=== PATIENT | female | born 1950 | race Caucasian/White ===

== ENCOUNTER 2017-03-27 17:29 | Emergency (ER) | payer OTHER, MEDICARE ==
[~2017-03-27] VITALS: Ht 157.5 cm; Wt 70.2 kg
[2017-03-27 17:35] VITALS: BP 142/84; PULSE 87; RESP 16; TEMP 98.8; O2SAT 94
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
[2017-03-27] MEDS ORDERED: LISI10TA3 PO (17:55)
[2017-03-27] MEDS ORDERED: BUSP15TA PO (17:55)
[2017-03-27] MEDS ORDERED: IBUP-232 PO (17:55)
[2017-03-27] MEDS ORDERED: ZOFR4TAB PO (17:55)
[2017-03-27] MEDS ORDERED: RANI1TAB5 PO (17:55)
[2017-03-27] MEDS ORDERED: METF500T PO (17:55)
[2017-03-27] MEDS ORDERED: FLUT50SP EACH NARE (17:55)
[2017-03-27] MEDS ORDERED: ALPR0.5T3 PO (17:55)
[2017-03-27] MEDS ORDERED: DULO1CAP3 PO (17:55)
[2017-03-27] MEDS ORDERED: ASPI-516 CHEW (17:55)
[2017-03-27] MEDS ORDERED: SIMV40TA PO (17:55)
[2017-03-27] MEDS ORDERED: MONT10TA4 PO (17:55)
[2017-03-27] MEDS ORDERED: PAXI30TA7 PO (17:55)
[2017-03-27 18:12] LABS: BLOOD, URINE NEG (NEG); GLUCOSE,URINE NEG (NEG); KETONE, URINE NEG (NEG); NITRITE,URINE NEG (NEG); PH, URINE 5.5 (5.0-8.5)
[2017-03-27 18:15] LABS: URINE COLOR YELLOW (YELLW/STRAW)
[2017-03-27 18:17] LABS: BACTERIA, URINE FEW /hpf; COMMENT (UR) CULT NOT INDICATED; CULTURE IF INDICATED CULT NOT INDICATED; RBC, URINE 0-3 /hpf (0-3); SQUAMOUS EPITHELIAL CELL URINE > 8 /hpf (0-5)
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
[2017-03-27 18:46] LABS: AUTOMATED NEUTROPHIL # 4.8 TH/MM3 (1.8-7.7); BASOPHIL # 0.2 TH/MM3 (0-0.2); BASOPHIL % 2.8 % (0.0-2.0); EOSINOPHIL # 0.4 TH/MM3 (0-0.4); EOSINOPHIL % 4.5 % (0.0-4.0); HEMATOCRIT 35.2 % (35.0-46.0); HEMO FLAGS DIFF FINAL; LYMPH % 30.6 % (9.0-44.0); LYMPHOCYTE # 2.6 TH/MM3 (1.0-4.8); MEAN CELL VOLUME 85.1 FL (80.0-100.0); MEAN CORPUSCULAR HEMOGLOBIN 27.1 PG (27.0-34.0); MEAN CORPUSCULAR HGB CONC 31.8 % (32.0-36.0); MONO % 7.2 % (0.0-8.0); NEUT % 54.9 % (16.0-70.0); PLATELET COUNT 300 TH/MM3 (150-450); RED BLOOD COUNT 4.14 MIL/MM3 (4.00-5.30); WHITE BLOOD COUNT 8.6 TH/MM3 (4.0-11.0)
[2017-03-27 19:09] VITALS: BP 98/68; PULSE 74; RESP 14; O2SAT 100
[2017-03-27] MEDS ORDERED: BACT800T5 PO (19:17)
[2017-03-27 19:24] LABS: BICARBONATE 24.7 MEQ/L (21.0-32.0)
[2017-03-27 19:40] VITALS: BP 100/70
== END 2017-03-27 19:54 | disposition home or self-care (01) ==
LOC: PHED 17:29
DX: M54.6 Pain in thoracic spine (principal); M54.2 Cervicalgia; N39.0 Urinary tract infection, site not specified; V89.2XXA Person injured in unspecified motor-vehicle accident, traffic, initial encounter
CPT/HCPCS: 70450; 72072; 72125; 80048; 80307; 81001; 85025